=== PATIENT | female | born 1955 ===

== ENCOUNTER 2024-08-16 05:40 | Day surgery (SDC) | payer OTHER ==
[~2024-08-16 05:40] MED LIST: CELEXA40 MG; COZAAR25 MG; SYNTHROID125 MCG
[2024-08-16] MEDS ORDERED: CEFAZOLIN SODIUM 1,000 MG VIAL IV ONE (11:15)
[2024-08-16] MEDS ORDERED: CHLORHEXIDINE GLUCONATE 120 ML BOTTLE TOP ONE (11:15)
[2024-08-16] MEDS ORDERED: TRAM1TAB98 PO (12:32)
[2024-08-16] MEDS ORDERED: MACROBID 100 M100 MG PO (12:32)
== END 2024-08-16 15:00 | disposition home or self-care (01) ==
LOC: CIR.AMB 05:40
PROVIDERS: ATTEND Obstetrics & Gynecology Gynecology
DX: N81.11 Cystocele, midline (principal); N81.6 Rectocele; N81.5 Vaginal enterocele; E03.9 Hypothyroidism, unspecified; I10 Essential (primary) hypertension